=== PATIENT | male | born 1990 | race Caucasian/White ===

== ENCOUNTER 2024-02-13 15:46 | Emergency (ER) | payer BC ==
[2024-02-13] MEDS ORDERED: ACETAMINOPHEN 1000 MG/100 ML BAG IVPB ONE (16:22)
[2024-02-13 16:23] VITALS: BP 137/85; PULSE 62; RESP 20; TEMP 99.3; BMI 23.6
[2024-02-13 17:20] LABS: HEMATOCRIT 45.6 % (35.4-49); HEMOGLOBIN 15.2 G/dL (11.7-16.9); MCH 29.5 pg (25.7-33.7); MCHC 33.4 g/dl (32.0-35.9); MEAN CELL VOLUME 88.4 fl (80-96); MEAN PLT VOLUME 10.8 fl (7.5-11.1); PLATELET COUNT 162.3 10^3/uL (134-434); RBC 5.16 10^6/uL (4.00-5.60); RDW 13.6 % (11.9-15.9); WHITE BLOOD COUNT 7.5 10^3/uL (4.0-10.8)
[2024-02-13 17:32] LABS: ALBUMIN 4.7 g/dl (3.4-5.0); BILIRUBIN,TOTAL 0.5 mg/dl (0.2-1); CALCIUM 9.7 mg/dl (8.5-10.1); POTASSIUM 3.9 mmol/L (3.5-5.1); TOT PROT 7.1 g/dl (6.4-8.2)
[2024-02-13 18:23] LABS: PLATELET ESTIMATE ADEQUATE
[2024-02-13 18:24] LABS: URIC ACID CRYSTALS FEW /hpf (NONE SEEN)
== END 2024-02-13 18:41 | disposition home or self-care (01) ==
LOC: FER 15:46
DX: R10.9 Unspecified abdominal pain (principal)
CPT/HCPCS: 36415; 71046-TC-FY; 80053; 81003; 81015; 85027; 87086; 99284-25